=== PATIENT | female | born 1945 | race Caucasian/White ===

== ENCOUNTER 2022-10-23 09:52 | Inpatient (IN) | payer MEDICARE, BC ==
[~2022-10-23] VITALS: Ht 157.5 cm; Wt 54.4 kg
--- NOTE | 2022-10-23 09:52 | NUR ---
Patient walked from the featheredge machine operator's gurney to ER bed 2A with steady gait (about 5 steps). She is AOx4, respiration:easy & non-labored, denies any discomfort, skin warm and dry.
--- NOTE | 2022-10-23 10:01 | NUR ---
Patient can not recall why she was brought to ER. "Oh, I think I had TIA." per patient's verbalization.
--- NOTE | 2022-10-23 10:05 | NUR ---
[email or web address], medical screening exam in progress
--- NOTE | 2022-10-23 10:33 | NUR ---
Patient can not recall why she is in the Emergency Room now. Patient is unable to remember that she was just talking to our ER doctor a few minutes ago. Patient is intermittently forgetful, [email or web address].
[2022-10-23 10:37] LABS: HEMATOCRIT 34.7 % (31.2-41.9); MEAN CORPUSCULAR HEMOGLOBIN 29.8 uug (24.7-32.8); MEAN CORPUSCULAR VOLUME 91.9 fL (75.5-95.3); PLATELET COUNT (AUTO) 288 K/uL (179-408)
--- NOTE | 2022-10-23 10:39 | NUR ---
"Plan to admit" per Dr Ren. ER registration/admitting staff and Gregory notified.
[2022-10-23] MEDS ORDERED: ZOLP10TA2 (10:52)
[2022-10-23] MEDS ORDERED: LOSA1TAB42 MT (10:52)
[2022-10-23] MEDS ORDERED: SIMV-49 MT (10:52)
[2022-10-23] MEDS ORDERED: MONT10TA33 MT (10:52)
[2022-10-23 10:53] LABS: ETHANOL < 3 MG/DL (0-0)
--- NOTE | 2022-10-23 10:55 | NUR ---
Frequent reorientation done with patient. Patient is forgetful re: place and situation at this time.
[2022-10-23 11:00] LABS: ALANINE AMINOTRANSFERASE 21 U/L (14-59); ALKALINE PHOSPHATASE 73 U/L (50-136); ASPARTATE AMINOTRANSFERASE 18 U/L (15-37); BILIRUBIN,TOTAL 0.4 mg/dL (0.2-1.0); CARBON DIOXIDE 32 mmol/L (21-32); CHLORIDE 104 mmol/L (98-107); GLUCOSE 108 mg/dL (74-106); POTASSIUM 3.5 mmol/L (3.5-5.1); TOTAL PROTEIN, SERUM 7.8 g/dL (6.4-8.2); UREA NITROGEN, BLOOD 30 mg/dL (7-18)
[2022-10-23 11:01] LABS: ACETAMINOPHEN < 2.0 ug/mL (10-30)
[2022-10-23 12:46] LABS: *BILIRUBIN,URIN NEGATIVE (NEGATIVE); *CLARITY,URINE TURBID (CLEAR); *COLOR,URINE YELLOW (YELLOW); *KETONES,URINE NEGATIVE (NEGATIVE); *UROBILINOGEN,URINE 0.2 E.U./dl (NORMAL); LEUKOCYTE ESTERASE ,URINE 2+ (NEGATIVE); NITRITE, URINE NEGATIVE (NEGATIVE); UGLUCOSE NEGATIVE (NEGATIVE)
--- NOTE | 2022-10-23 12:54 | NUR ---
@1237pm, 5 attempts were done earlier to give nursing SBAR to 3rd floor staff Lucy but this patient will now go to 2nd floor instead per 3rd floor charge Gage. 1248pm: Nurse Marilyn (2nd floor staff) said that she will call ER as soon as she can for nursing SBAR.
[2022-10-23 12:57] LABS: *BLOOD, URINE TRACE (NEGATIVE)
--- NOTE | 2022-10-23 13:00 | NUR ---
report receive from fadumo hernandez rn. pt is presented to er because of confusion. she was diagnosed with TIA r/o CVA and UTI; pt is aox 4 ambulatory; self care; continent of both; bf at bedside. iv access on L AC 20g and L hand 22 g heplock. sinus on tele. RA saturating 98-99%.
--- NOTE | 2022-10-23 13:16 | NUR ---
[email or web address].
--- NOTE | 2022-10-23 13:39 | NUR ---
"OK to go to the floor from CT." per ER Doctor Damon. lead principal technical architect Joshua notified re: patient will go to [address] scan department.
[2022-10-23] MEDS ORDERED: IOHEXOL 350 100 ML INFUS..BTL ONE (14:04)
[2022-10-23] MEDS ORDERED: SWABABLE VALVE TRANSFER SET EA MC ONE (14:04)
[2022-10-23] MEDS ORDERED: IV NORMAL SALINE 250 ML IV ONE (14:04)
[2022-10-23 14:27] LABS: BACTERIA,URINE MANY /HPF (NONE SEEN)
[2022-10-23 14:28] LABS: MUCUS,URINE NONE SEEN /LPF (0-FEW); SQUAMOUS EPITHELIAL CELL,UR NONE SEEN /HPF (NONE SEEN); WBC,URINE 80-100 /HPF (0-3)
[2022-10-23 14:29] LABS: RBC,URINE 0-3 /HPF (0-3)
[2022-10-23] MEDS: ASPIRIN 325 MG TABLET PO ONE ×2 (14:30→16:28)
--- NOTE | 2022-10-23 14:30 | NUR ---
pt arrived at the unit. notified.
[2022-10-23 14:40] VITALS: BP 142/67
[2022-10-23] MEDS ORDERED: ONDANSETRON 4 MG/2 ML VIAL IV PRN (14:45)
[2022-10-23] MEDS ORDERED: MAGNESIUM HYDROXIDE 30 ML LIQUID UDC PO PRN (14:45)
[2022-10-23] MEDS ORDERED: IV 1/2NS 1000 ML 1,000 ML IV PRN (14:45)
--- NOTE | 2022-10-23 14:52 | NUR ---
TEXT DR. MENDOZA FOR MRI APPROVAL.
--- NOTE | 2022-10-23 14:54 | NUR ---
DR. MENDOZA TEXT BACK ON HOLD FOR NOW,HE WILL LET US KNOW.
[2022-10-23] MEDS: ENOXAPARIN SODIUM 40 MG/0.4 ML DISP.SYRIN SQ SCH (16:12)
[2022-10-23] MEDS: CEFTRIAXONE 1 G in IV DEXTROSE 5% 50 ML IV SCH (16:13)
[2022-10-23 16:43] VITALS: BP 169/71
--- NOTE | 2022-10-23 20:45 | NUR ---
called betty air conditioning supervisor at [facility]. he states that the pt is scheduled for mri imani morning.
[2022-10-23] MEDS ORDERED: hydrALAZINE HCL 20 MG/1 ML VIAL IV PRN (21:00)
[2022-10-23] MEDS ORDERED: ATORVASTATIN 40 MG TABLET PO SCH (21:00)
--- NOTE | 2022-10-23 22:30 | NUR ---
AOx4. Ambulatory. NIHSS Stroke scale done. No neuro deficit noted. IV site on L hand 20 g intact and patent. Pt complaining of IV site on L AC being too tight and painful. IV removed. Pt also requested for Ambien. Medications given as ordered. All needs attended. Call light button in reach. Left bed in lowest position. Safety precautions maintained.
[2022-10-23] MEDS ORDERED: ZOLPIDEM 5 MG TABLET PO PRN (23:00)
[2022-10-24 05:39] LABS: HEMATOCRIT 32.5 % (31.2-41.9); MEAN CORPUSCULAR HEMOGLOBIN 29.9 uug (24.7-32.8); MEAN CORPUSCULAR VOLUME 91.1 fL (75.5-95.3); PLATELET COUNT (AUTO) 259 K/uL (179-408)
[2022-10-24 06:00] LABS: MAGNESIUM 1.7 mg/dL (1.8-2.4); PHOSPHOROUS 3.8 mg/dL (2.5-4.9); POTASSIUM 3.6 mmol/L (3.5-5.1)
[2022-10-24 06:11] LABS: THYROID STIMULATING HORMONE 10.236 mIU/mL (0.358-3.740)
[2022-10-24] MEDS: ACETAMINOPHEN 325 MG TABLET PO PRN ×2 (06:39→11:36)
[2022-10-24] MEDS ORDERED: PANTOPRAZOLE SODIUM 40 MG TABLET.DR PO SCH (07:00)
[2022-10-24 08:00] VITALS: BP 126/75
[2022-10-24] MEDS ORDERED: HYDROCHLOROTHIAZIDE 12.5 MG CAPSULE PO SCH (09:00)
[2022-10-24] MEDS ORDERED: LOSARTAN POTASSIUM 50 MG TABLET PO SCH (09:00)
[2022-10-24] MEDS ORDERED: ASPIRIN 81 MG TAB.CHEW PO SCH (09:00)
[2022-10-24] MEDS: ENOXAPARIN SODIUM 40 MG/0.4 ML DISP.SYRIN SQ SCH (09:46)
[2022-10-24] MEDS ORDERED: MAGNESIUM SULFATE/D5W 100 ML IV SCH ×2 (10:30→14:00)
--- NOTE | 2022-10-24 11:30 | NUR ---
pt was pick by ambulance for mri in [place].
[2022-10-24 12:00] VITALS: BP 152/63
[2022-10-24] MEDS ORDERED: ATOR40TA PO (12:30)
[2022-10-24] MEDS ORDERED: LEVO25TA9 PO (12:30)
[2022-10-24] MEDS ORDERED: NITR100C11 PO (12:30)
[2022-10-24] MEDS ORDERED: ASPI81TA31 PO (12:30)
--- NOTE | 2022-10-24 13:20 | NUR ---
pt came back from mri.
[2022-10-24] MEDS: CEFTRIAXONE 1 G in IV DEXTROSE 5% 50 ML IV SCH (14:05)
--- NOTE | 2022-10-24 14:10 | NUR ---
mri resulted. notified.
[2022-10-24] MEDS ORDERED: IBUPROFEN 400 MG TABLET PO PRN (15:00)
--- NOTE | 2022-10-24 16:00 | NUR ---
pt is discharge. exit care provided. spoke with the pt regarding discharge. pt verbalized understanding. all belongings accounted for. pt will go home. pt will be accompanied by her bf. iv access removed. pt is ambulatory with steady gait. denies dizziness.
[2022-10-24] MEDS ORDERED: MONTELUKAST SODIUM 10 MG TABLET PO SCH (18:00)
== END 2022-10-24 16:00 | disposition home or self-care (01) | DRG 69 ==
LOC: ER 09:52 → TELE 13:26
PROVIDERS: ADMIT Nurse Practitioner Family; ATTEND Nurse Practitioner Family
DX: G45.9 Transient cerebral ischemic attack, unspecified (principal); G93.41 Metabolic encephalopathy; N39.0 Urinary tract infection, site not specified; E03.8 Other specified hypothyroidism; E78.5 Hyperlipidemia, unspecified; I10 Essential (primary) hypertension; R73.03 Prediabetes; Z66 Do not resuscitate; B96.20 Unspecified Escherichia coli [E. coli] as the cause of diseases classified elsewhere; G45.4 Transient global amnesia; E86.0 Dehydration; R29.700 NIHSS score 0; Z20.822 Contact with and (suspected) exposure to COVID-19
CPT/HCPCS: 36415; 70450; 70496; 70551; 71045; 83735; 84100; 84443; 84484; 85025; 93005; 93307; 95819; A4663; G0378; G0480; J0696; J1650; J3475; Q9967